=== PATIENT | female | born 1995 | race Caucasian/White ===

== ENCOUNTER 2017-01-13 00:15 | Emergency (ER) | payer OTHER ==
[2017-01-13 04:52] VITALS: BP 130/66
== END 2017-01-13 04:27 | disposition home or self-care (01) ==
LOC: ED 00:15
DX: S05.01XA Injury of conjunctiva and corneal abrasion without foreign body, right eye, initial encounter (principal); W25.XXXA Contact with sharp glass, initial encounter; Y93.89 Activity, other specified; Y99.8 Other external cause status; Y92.89 Other specified places as the place of occurrence of the external cause